=== PATIENT | female | born 1975 | race Caucasian/White ===

== ENCOUNTER 2021-08-12 17:56 | Emergency (ER) | payer OTHER ==
[~2021-08-12] VITALS: Ht 170.2 cm; Wt 90.9 kg
[2021-08-12 18:06] VITALS: TEMP 97
[2021-08-12 19:49] VITALS: BP 139/89; PULSE 94
== END 2021-08-12 19:49 | disposition home or self-care (01) ==
LOC: COL.ER 17:56
DX: S89.91XA Unspecified injury of right lower leg, initial encounter (principal); X50.1XXA Overexertion from prolonged static or awkward postures, initial encounter; Z98.890 Other specified postprocedural states
CPT/HCPCS: J1885

== ENCOUNTER → 2023-03-17 | Outpatient (CLI) | payer OTHER | LOC: MC.RAD 12:37 | DX: Z12.31 Encounter for screening mammogram for malignant neoplasm of breast (principal) ==